=== PATIENT | female | born 1955 | race Caucasian/White ===

== ENCOUNTER 2022-11-18 11:04 | Day surgery (SDC) | payer MEDICARE ==
[~2022-11-18 11:04] MED LIST: LACTATED RINGERS 1,000 ML IV SCH
[2022-11-18 11:54] VITALS: RESP 16; TEMP 97
[2022-11-18] MEDS ORDERED: PROPOFOL 10 MG/ML 20 ML VIAL IV ONE (12:40)
--- NOTE | 2022-11-18 13:20 | P.PCN ---
Date of Procedure: 11/18/22 Procedure(s) Performed: BRIEF HISTORY: Patient is a 67-year-old pleasant white female scheduled for an elective colonoscopy as a part of screening for colon cancer/positive cologuard PROCEDURE PERFORMED: Colonoscopy snare polypectomy and Endo Clip placement. PREOPERATIVE DIAGNOSIS: Screening for colon cancer/polyps cologuard. IV sedation per Anesthesia. PROCEDURE: After informed consent was obtained, the patient, was brought into the endoscopy unit. IV sedation was administered by Anesthesia under continuous monitoring. Digital rectal examination was normal. Initially the Olympus CF-160 flexible video colonoscope was then inserted in the rectum, gradually advanced into the cecum without any difficulty. Careful examination was performed as the scope was gradually being withdrawn. Ileocecal valve and the appendiceal orifice were visualized and appeared normal. Prep was excellent. Mucosa of the cecum, appeared normal. In the ascending colon there was a 1.5 cm and 2.5 cm broad- based polyp removed by piecemeal snare polypectomy and complete polypectomy was accomplished. Following polypectomy was some oozing identified and hence Endo Clip with a 6 with good hemostasis. In the hepatic flexure there was a 2 cm polyp that was removed by snare polypectomy. In the sigmoid: There was another 2 cm peduncular polyp removed by snare polypectomy. Rest of the ascending colon, transverse colon, descending colon, sigmoid colon, and rectum appeared normal. Scattered sigmoid diverticulosis seen. Retroflexion was performed in the rectum and no lesions were seen. The patient tolerated the procedure well. IMPRESSION: 1 cm and 3.5 cm broad-based ascending colon polyp status post piecemeal snare polypectomy followed by Endo Clip placement and almost complete polypectomy accomplished 2 cm hepatic flexure polyp status post polypectomy 2 cm pedunculated sigmoid polyp status post polypectomy Scattered sigmoid diverticulosis RECOMMENDATIONS: Findings of this examination were discussed with the patient as well as her family. She was advised to follow with the biopsy result. He'll be seen in office in 2 weeks. If the biopsy report adenoma she can have a repeat colonoscopy in 3-6 months..
[2022-11-18 13:39] VITALS: BP 142/68; PULSE 80
== END 2022-11-18 13:58 | disposition home or self-care (01) ==
LOC: ORWHC2ENDO 11:04
PROVIDERS: ATTEND Internal Medicine Gastroenterology
DX: D12.2 Benign neoplasm of ascending colon (principal); D12.3 Benign neoplasm of transverse colon; D12.5 Benign neoplasm of sigmoid colon; K57.30 Diverticulosis of large intestine without perforation or abscess without bleeding; J44.9 Chronic obstructive pulmonary disease, unspecified; Z79.51 Long term (current) use of inhaled steroids; Z90.89 Acquired absence of other organs; Z88.0 Allergy status to penicillin; Z90.49 Acquired absence of other specified parts of digestive tract; Z79.899 Other long term (current) drug therapy
CPT/HCPCS: 88305; 45382; 45385; J2704

== ENCOUNTER → 2023-01-13 | Outpatient (CLI) | payer MEDICARE ==
--- NOTE | 2023-01-13 11:00 | BD ---
EXAMINATION TYPE: Axial Bone Density DATE OF EXAM: 01/13/2023 CLINICAL HISTORY: 67 years old Female. ICD-10 CODE: M81.0 AGE-RELATED OSTEOPOROSIS W/ Height: 61.7 in Weight: 134 lbs FRAX RISK QUESTIONS: Secondary Osteoporosis: Rheumatoid Arthritis: yes RISK FACTORS HISTORY OF: Active: moderate Diet low in dairy products/other sources of calcium: yes Postmenopausal woman: age 47 Lost more than 2 inches in height since high school: yes 06/03" MEDICATIONS: Additional Medications: blood pressure meds, inhaler, rheumatoid arthritis meds,allergy med EXAM MEASUREMENTS: Bone mineral densitometry was performed using the [employer] System. Bone mineral density as measured about the Lumbar spine is: ----- L1-L4(G/cm2): 0.941 T Score Values are as follows: ----- L1: -2.0 ----- L2: -2.5 ----- L3: -2.4 ----- L4: -1.4 ----- L1-L4: -2.0 Z Score Values are as follows: ----- L1: -0.3 ----- L2: -0.7 ----- L3: -0.7 ----- L4: 0.4 ----- L1-L4: -0.3 Bone mineral density baseline Bone mineral density about the R hip (g/cm2): 0.754 Bone mineral density about the L hip (g/cm2): 0.750 T Score values are as follows: -----R Neck: -2.4 -----L Neck: -2.5 -----R Total: -2.0 -----L Total: -2.0 Z Score values are as follows: -----R Neck: -0.8 -----L Neck: -1.0 -----R Total: -0.7 -----L Total: -0.7 Bone mineral density baseline FRAX%s: The graph provided illustrates a 17.9% chance for a major osteoporotic fx and a 4.4% chance f or the hips probability for fx in 10 years time. IMPRESSION: Osteopenia (T Score between -2.5 and -1). There is slightly increased risk of fracture and the patient may be considered for treatment. Re-Screen 2-5 years. NOTE: T-SCORE=SD OF THE YOUNG ADULT MEAN.
--- NOTE | 2023-01-14 07:56 | MM ---
Reason for Exam: Screening (asymptomatic). Last mammogram was performed 5 year(s) and 6 month(s) ago. Patient History: Menarche at age 13. First Full-Term at age 20. Postmenopausal. Risk Values: Vy 5 year model risk: 1.3%. NCI Lifetime model risk: 5.0%. Prior Study Comparison: 10/23/2014 Bilateral Screening Mammogram, Unknown. 12/19/2014 Right Diagnostic Mammogram, Unknown. 07/16/2017 Bilateral Screening Mammogram, Unknown. Tissue Density: The breast tissue is heterogeneously dense. This may lower the sensitivity of mammography. Findings: Analyzed By CAD. There is no suspicious group of microcalcifications or new suspicious mass in either breast. Overall Assessment: Negative, BI-RAD 1 Management: Screening Mammogram of both breasts in [address] [facility] will attempt to contact patient to return for supplemental views and ultrasound if indicated. Patient should continue monthly self-breast exams. A clinical breast exam by your physician is recommended on an annual basis. This exam should not preclude additional follow-up of suspicious palpable abnormalities. Note on Vy scores and lifetime risk: 1. A Vy score greater than 3% is considered moderate risk. If this is the case, consider specialist referral to assess eligibility for a risk reducing agent. 2. If overall lifetime risk for the development of breast cancer is 20% or higher, the patient may qualify for future screening with alternating mammogram and breast MRI. Electronically signed and approved by: Mayur Corado DO
== END | disposition home or self-care (01) ==
LOC: RADBDWWP 07:03
PROVIDERS: ATTEND Internal Medicine Geriatric Medicine
DX: Z12.31 Encounter for screening mammogram for malignant neoplasm of breast (principal); M81.0 Age-related osteoporosis without current pathological fracture; M85.89 Other specified disorders of bone density and structure, multiple sites; Z78.0 Asymptomatic menopausal state
CPT/HCPCS: 77063; 77067; 77080

== ENCOUNTER → 2023-10-08 | Outpatient (CLI) | payer MEDICARE ==
--- NOTE | 2023-10-08 14:55 | XR ---
EXAMINATION TYPE: XR chest 2V DATE OF EXAM: 10/08/2023 8:45 AM CLINICAL INDICATION:Female, 68 years old with history of J84.9 INTERSTITIAL PULMONARY DISEASE, UNSPEC IFIED; COMPARISON: None TECHNIQUE: XR chest 2V Frontal and lateral views of the chest. FINDINGS: Lungs/Pleura: Prominent interstitial lung markings are seen scattered throughout the lungs with thony ening of the diaphragm and increased lucency of the lung apices. No evidence of focal consolidation, pneumothorax or pleural effusion. Pulmonary vascularity: Unremarkable. Heart/mediastinum: Cardiomediastinal silhouette is unremarkable. Musculoskeletal: No acute osseous pathology. IMPRESSION: 1. Chronic changes without acute pulmonary process. 2. COPD.
== END | disposition home or self-care (01) ==
LOC: RADXRMAIN 08:26
PROVIDERS: ATTEND Internal Medicine Geriatric Medicine
DX: J44.9 Chronic obstructive pulmonary disease, unspecified (principal)
CPT/HCPCS: 71046

== ENCOUNTER → 2024-02-14 | Outpatient (CLI) | payer MEDICARE ==
--- NOTE | 2024-02-15 10:49 | CTL ---
EXAMINATION TYPE: CT Low Dose Lung DATE OF EXAM ORDERED: 02/14/2024 HISTORY: Nicotine dependence. Lung cancer screening CT DLP: 85.[address] CTDI: 2.3 mGy Automated exposure control for dose reduction was used. SCREENING VISIT: Initial COMPARISON: None TECHNIQUE: Low dose computed tomography scan was performed through the chest at 1 mm thick sections a nd reconstructed images in the coronal plane at [address] DIAGNOSTIC QUALITY: Satisfactory FINDINGS: LUNG NODULES: Present, detailed below: 1. Calcification in the posterior right upper lung field. Series 4 image 66. LUNGS: COPD: Severity: Moderate Fibrosis: Severity: None Lymph nodes: None Other findings: Some stranding in the posterior lateral right upper lung field, series 4 image 53, ma y be related to scarring. Some atelectasis may be at the lingular base. Right thyroid lobe is somewha t prominent. Consider evaluation with ultrasound RIGHT PLEURAL SPACE: Effusion: None Calcification: None Thickening: None Pneumothorax: None LEFT PLEURAL SPACE: Effusion: None Calcification: None Thickening: None Pneumothorax: None HEART: Other: Ascending thoracic aorta at the level the main pulmonary artery measures 3.5 cm. The main pul monary artery at the bifurcation measures 2.5 cm. Heart Size: Normal Coronary calcification: Minimal Pericardial effusion: None OTHER FINDINGS: Upper abdomen: Normal Bony thorax: Normal Supraclavicular region: Normal IMPRESSION: 1. No suspicious changes suggest primary or metastatic disease. 2. COPD. 3. Prominent right lobe thyroid. Additional evaluation with ultrasound can be performed. FOLLOW UP CT CHEST RECOMMENDATION: Follow up CT chest [address] LUNG RAD: Lung-Rad 2 Benign Appearance or Behavior [facility], , 02/15/2024 10:47 AM
== END | disposition home or self-care (01) ==
LOC: RADCTMAIN 06:54
PROVIDERS: ATTEND Internal Medicine
DX: Z12.2 Encounter for screening for malignant neoplasm of respiratory organs (principal); J44.9 Chronic obstructive pulmonary disease, unspecified; Z87.891 Personal history of nicotine dependence
CPT/HCPCS: 71271